=== PATIENT | male | born 1965 ===

== ENCOUNTER 2025-10-30 18:09 | Emergency (ER) | payer OTHER, SELFPAY ==
[2025-10-30 18:16] VITALS: BP 108/73
[2025-10-30 18:44] LABS: Hematocrit 44.3 % (39.0-52.0); Hemoglobin 15.7 g/dL (13.0-18.0); Mean Corp Hgb Conc. 35.4 g/dL (33.0-37.0); Mean Corpuscular Volume 84.1 fL (80.0-94.0); Nucleated Red Blood Cells % 0 % (-); Platelet Count 191 10^3/uL (130-400); Red Cell Dist. Width 12.6 % (11.5-14.5)
[2025-10-30 18:51] LABS: Urine Character Cloudy (Clear)
[2025-10-30 19:07] LABS: ALT (SGPT) 20 U/L (0-50); AST (SGOT) 21 U/L (17-59); Albumin 4.4 g/dl (3.5-5.0); Alkaline Phosphatase 67 U/L (38-126); Blood Urea Nitrogen 19 mg/dl (9-20); Calcium 9.5 mg/dl (8.4-10.2); Carbon Dioxide 27 mmol/L (22-30); Chloride 100 mmol/L (98-107); Glucose 106 mg/dl (70-99); Potassium 4.1 mmol/L (3.5-5.1); Sodium 135 mmol/L (135-145); Total Protein 7.0 g/dl (6.3-8.2); eGFR > 60.00
[2025-10-30 19:18] LABS: Troponin I < 0.012 ng/ml
[2025-10-30 19:23] LABS: Urine Squamous Cell 0-2 /LPF (Few); Urine White Cell >100 /HPF (0-5)
[2025-10-30 20:07] VITALS: BMI 25.0
[2025-10-30] MEDS: NSS 1000 IV (20:30)
[2025-10-30] MEDS: ROCEPHIN 1000 MG IV (20:32)
--- NOTE | 2025-10-30 21:46 | ED.GENMED ---
History of Present Illness
General
Chief Complaint: Heart Rate Problem
Time Seen by Provider: 10/30/25 20:08
Nursing documentation reviewed up to this point in time: agreed with
History of Present Illness
History of Present Illness:
60-year-old male presents to the ER for evaluation of urinary frequency and episode of incontinence that occurred earlier today. Patient also states that his watch alerted him that his heart rate was very elevated-130. Patient reports feeling weak
today. He has chronically poor appetite- present at bedside states that he has been eating as per his usual. No reported vomiting. Patient denies flank pain. He denies hematuria. He did not take any medications for symptoms. He has never
seen a urologist. He denies syncope or trauma. No chest pain. No dyspnea when his heart rate was elevated. He denies any feeling of palpitations. He did not have much to drink today. Patient is also reporting that his right fifth digit feels
numb. He states this has been going on for a little while now. He denies any injury or trauma. He denies any proximal arm discomfort.
Past History
Past History
ED Past Medical History: Valvular disease (Derik valve prolapse)
ED Past Surgical History: None
Social History
Tobacco: Non-smoker
Personal:
Living: with family
Employment: Employed (Sales)
Review of Systems
Review of Systems
Allergies reviewed?: Yes
Phy Exam
Physical Exam
Physical Exam:
Patient is awake, alert, appears in no acute distress, head is NCAT, PERRL, EOMI mucous membranes moist, conjunctiva pink, heart regular rate and rhythm without murmurs or ectopy, lungs are clear to auscultation without wheezes rales or rhonchi, no
JVD, abdomen is soft and nontender on palpation, extremities without edema, GCS is 15, right hand examination reveals all of the digits to be pink and well-perfused with intact sensation to light touch, patient has full active range of motion of the
right hand although he reports altered sensation to the fifth finger on both palmar and volar aspects, no deformity, no ecchymosis, no rash
Course
Orders/Labs/Results
Orders:
Orders
10/30/25 18:10
EKG [Electrocardiogram (*1)] Urgent
Reason for Study: Tachycardia
EKG- Treatment ONCE
10/30/25 18:33
Urinalysis Reflex To Culture Urgent
Date Specimen was Collected: 10/30/25
Time Specimen was Collected: 18:19
Urine Microscopic Reflex Cult Urgent
Urine Culture Urgent
JERO Source: U
Specimen Description:
Date Specimen was Collected: 10/30/25
Time Specimen was Collected: 18:19
10/30/25 18:37
Complete Blood Count/With Diff Urgent
Comprehensive Metabolic Panel Urgent
Troponin I Urgent
10/30/25 20:20
Bladder Scan- Treatment ONCE
Comment: post void please
0.9% Sodium Chloride 1000 ml [Nss] 1,000 ml IV BOLUS
CefTRIAXone [Rocephin] 1,000 mg IV NOW STA
Abnormal Lab Results
10/30/25 10/30/25
18:33 18:37
WBC 15.4 H 10^3/uL
(4.8-10.8)
Abs Immat Gran (auto) 0.1 H 10^3/uL
(0-0.05)
Absolute Neuts (auto) 12.7 H 10^3/uL
(1.4-6.5)
Absolute Monos (auto) 1.2 H 10^3/uL
(0.1-0.6)
Neutrophils % 82.5 H %
(42.2-75.2)
Lymphocytes % 9.0 L %
(20.5-51.1)
Glucose 106 H mg/dl
(70-99)
Total Bilirubin 1.6 H mg/dl
(0.2-1.3)
Ur Occult Blood Reflex 3+ A
(Negative)
Urine Urobilinogen 2+ A
(Neg - 1+)
Leukocyte Esterase Rfl 3+ A
(Negative)
Urine RBC 11-15 A /HPF
(0-2)
Urine WBC (Reflex) >100 A /HPF
(0-5)
Urine Bacteria (Reflex) Moderate A
(Negative)
Urine Albumin (Reflex) 2+ A
(Neg - Trace)
10/30/25 18:37
10/30/25 18:37
With blood count elevated. Kidney function preserved. Urinalysis is consistent with acute infection
Vital Signs
Initial and Last Documented VS:
Initial Vital Signs
Temp Pulse Resp BP Pulse Ox
98.2 F 102 16 108/73 100
10/30/25 18:16 10/30/25 18:16 10/30/25 18:16 10/30/25 18:16 10/30/25 18:16
Last Documented Vital Signs
Temp Pulse Resp BP Pulse Ox
98.2 F 102 16 108/73 100
10/30/25 18:16 10/30/25 18:16 10/30/25 18:16 10/30/25 18:16 10/30/25 21:53
MDM/Problems Addressed
Differential Diagnosis Includes:
Differential diagnosis to consider but not limited to urinary tract infection, prostatitis, arrhythmia along with other etiologies considered
Chronic conditions affecting care:
Mitral valve prolapse
*Pulse Oximetry
SaO2: 100
Oxygen Mode of Delivery: Room air
Patient hypoxic: no
*EKG
Interpreted by ED Provider?: Yes (I dependently viewed and interpreted twelve-lead EKG showing normal sinus rhythm, rate 97, leftward axis, no ST elevation, intervals normal, no evidence for acute worrisome process.)
*[employer] Systems Administrator Interpretation
Rate: normal (I independently viewed and interpreted rhythm strip showing normal sinus rhythm, no ectopy)
*Critical Care Note
Total Time (30-74mins, 75-104mins- exclusive of procedures): Not Applicable
Update Note
Update Note:
I discussed with patient very reassuring EKG. Labs reveal elevated white blood count. I discussed with patient urinalysis also consistent with infection and symptoms in alignment with same. I discussed with him treatment with IV antibiotics and 1
L IV fluids to ensure hydration. Patient and present at bedside feel comfortable with this plan. I also discussed with him benefit of follow-up with urology for reevaluation and further care. They have no questions at the current time.
2208: Patient feeling well after IV fluids. Resting comfortably. Still complaining of discomfort in his finger. On reexamination, fifth digit is still pink and well-perfused, no skin change, no limitation in active range of motion. I discussed
with patient and plan for outpatient follow-up with primary care physician this week. They expressed understanding of instructions and had no questions prior to leaving the department
ED Attending Note
-
Portions of this chart may have been created with voice recognition software.� Occasional wrong word or��sound alike� substitutions may have occurred due to the inherent limitations of voice recognition software.
Discharge Plan
Departure
Patient Disposition: Home (Routine Discharge)
Date of Disposition: 10/30/25
Time of Disposition: 22:05
Patient with high blood pressure during this ER visit?: No
Discharge Problem:
Urinary tract infection, Palpitation
Instructions: Urinary tract infections in adults, Palpitations (DC)
Prescriptions:
New
sulfamethoxazole-trimethoprim [Bactrim] 400-80 mg tablet
1 tab PO BID Qty: 20 0RF
No Action
multivitamin 1 EACH tablet
1 ea PO DAILY
aspirin 81 MG tablet,delayed release (DR/EC)
81 mg PO DAILY 0RF
acetaminophen [Tylenol Extra Strength] 500 MG tablet
1,000 mg PO Q6HPRN PRN (Reason: mild pain) Qty: 1 0RF
ibuprofen 200 MG tablet
400 - 600 mg PO Q6HPRN PRN (Reason: moderate pain) Qty: 1 0RF
oxycodone 5 MG tablet
5 mg PO Q4HPRN PRN (Reason: breakthrough/severe pain) Qty: 5 0RF
Referrals:
Carla Portillo DO [Family Provider, Family Practice]
Cash Knapp Jr., MD [Active, Urology] - Next open appointment
Discharge Problem: Urinary tract infection
Activity Restrictions/Additional Instructions:
Encourage encourage fluids
Please contact your primary care physician in the morning to schedule appointment for reevaluation and further care
Please contact urology office in the morning to schedule appointment for follow-up
Return to the ER for any concern
Interventions
Interventions:
*General Assessment Last Done: 10/30/25 20:08
*Neglect/Abuse Screening Last Done: 10/30/25 18:18
*ED COVID-19 Vaccine History Last Done: 10/30/25 20:08
*ED Influenza Vaccine History Last Done: 10/30/25 20:08
[facility] Fall Risk Assessment Tool Last Done: 10/30/25 20:07
*Risk Screen - Suicide (C-SSRS) Last Done: 10/30/25 18:16
ED- Cardiac Assessment Last Done: 10/30/25 20:08
ED- Pulmonary Assessment Last Done: 10/30/25 20:08
Discharge Date and Time
Print Language: IVORIAN
[2025-10-30 22:25] VITALS: BP 119/78
== END 2025-10-30 22:28 | disposition home or self-care (01) ==
LOC: EMR 18:09
PROVIDERS: Emergency Medicine; EMERGENCY PHYSICIAN Emergency Medicine; FAMILY PHYSICIAN Family Medicine
DX: N39.0 Urinary tract infection, site not specified (principal); B96.20 Unspecified Escherichia coli [E. coli] as the cause of diseases classified elsewhere; I34.1 Nonrheumatic mitral (valve) prolapse; Z79.82 Long term (current) use of aspirin
CPT/HCPCS: 99284; 96360; 80053; 81003; 81015; 84484; 85025; 87077; 87086; 93005